=== PATIENT | female | born 1960 | race African-American/Black ===

== ENCOUNTER 2024-01-29 10:59 | Emergency (ER) | payer BC, SELFPAY ==
--- NOTE | ~2024-01-29 | XR_ITS ---
EXAMINATION: XR chest 2V DATE: 01/29/2024 12:05 INDICATION: Shortness of breath and midline chest pain TECHNIQUE: PA and lateral views of the chest were obtained. COMPARISON: Chest radiograph dated 11/29/2011 FINDINGS: The lungs remain clear with no focal airspace opacities, pulmonary edema, pleural effusion or pneumot horax. The cardiomediastinal silhouette is normal. Mild thoracic spondylosis with chronic compression fractures at multiple levels in the mid and lower thoracic spine. Additional unchanged chronic lower sternal fracture. IMPRESSION: 1. No acute cardiopulmonary disease. Reviewed, dictated and finalized at location B.
--- NOTE | 2024-01-29 11:06 | ECG_ITS ---
Test Date: 2024-01-29 11:15:36 Measurements Intervals [place] Rate: 89 P: 19 AL: 167 QRS: -50 QRSD: 93 T: 11 QT: 341 QTc: 415 Interpretive Statements SINUS RHYTHM LEFT AXIS DEVIATION [QRS AXIS < -30] MINIMAL VOLTAGE CRITERIA FOR LVH, CONSIDER NORMAL VARIANT [MEETS CRITERIA IN ONE OF: R(aVL), S(V1), R(V5), R(V5/V6)+S(V1)] No previous ECG available for comparison Electronically Signed On 01-29-2024 13:38:05 CDT by Kristen Neumann M.D.
[2024-01-29 11:11] VITALS: BP 151/75; PULSE 92; RESP 22; TEMP 36.3; O2SAT 97
[2024-01-29 11:27] LABS: Basophils Percent Auto 0.2 % (0.2-1.2); Eosinophils Percent Auto 0.2 % (0-4.4); Hematocrit 41.7 % (37.0-47.0); Hemoglobin 13.8 g/dL (12.0-15.0); Immature Granulocyte Absolute 0.03 K/mm3 (0.00-0.031); Immature Granulocyte Percent A 0.5 % (0-0.5); Lymphocytes Absolute Auto 1.43 K/mm3 (0.9-3.2); Lymphocytes Percent Auto 23.6 % (18.3-44.2); Mean Corpuscular HGB Conc 33.1 g/dl (32-36); Mean Corpuscular Hemoglobin 26.8 pg (26-34); Mean Corpuscular Volume 81.1 fl (80-100); Mean Platelet Volume 8.7 fl (7.4-10.4); Monocytes Absolute Auto 0.3 K/mm3 (0.1-0.6); Neutrophils Absolute Auto 4.3 K/mm3 (1.3-6.7); Neutrophils Percent Auto 70.5 % (45.5-73.1); Platelet Count Result 327 k/mm3 (150-375); Red Blood Count 5.14 M/mm3 (4.2-5.4); Red Cell Distribution Width 13.2 % (11.5-14.5); White Blood Count 6.1 K/mm3 (4.5-10.0)
[2024-01-29 11:36] LABS: Alanine Aminotransferase 14 U/L (6-35); Alkaline Phosphatase 84 U/L (38-126); Anion Gap 11 mmol/L (4-12); Aspartate Amino Transferase 21 U/L (14-36); Bilirubin,Total 0.7 mg/dL (0.2-1.3); Blood Urea Nitrogen 6 mg/dL (7-17); Calcium 9.7 mg/dL (8.4-10.2); Carbon Dioxide 21 mmol/L (22-30); Chloride 107 mmol/L (98-107); Estimated CRCL calculation 108 ml/min; Estimated Glomerular Filt Rate > 60; Glucose 137 mg/dL (65-110); Lipase 58 U/L (23-300); Potassium 3.6 mmol/L (3.4-5.0); Sodium 139 mmol/L (137-145)
[2024-01-29 11:37] LABS: Prothrombin Time 13.5 Seconds (11.1-14.7)
[2024-01-29 11:38] LABS: Partial Thromboplastin Time 27.4 Seconds (22.3-36.8)
[2024-01-29 11:47] LABS: Troponin I < 0.012 ng/mL (0.000-0.034)
--- NOTE | 2024-01-29 12:41 | ED.CHESTPAIN ---
HPI - Chest Pain General Chief Complaint: Chest Pain Stated Complaint: chest pain Time Seen by Provider: 01/29/24 12:24 History of Present Illness HPI narrative: Patient is a 63-year-old female who presents to the emergency department this afternoon complaining of chest pain which started at 2:00 a.m. this morning. Patient states that she was working on a paper on the chest pain started. Patient admits that she does feel nauseated and thought that maybe the pain was due to in the chest and just some Pepto-Bismol with minimal relief. Patient also states she felt lightheaded and is unsure if she is dehydrated. She denies any history of cardiovascular disease. Denies any fevers or chills at home. No additional symptoms or concerns at this time. Related Data Home Medications Medication Instructions Recorded Confirmed losartan 50 mg tablet 50 mg PO DAILY 12/01/19 Allergies Allergy/AdvReac Type Severity Reaction Status Date / Time No Known Allergies Allergy Mild Verified 01/29/24 11:10 Review of Systems Review of Systems: All systems are reviewed and are negative unless stated otherwise in the HPI. [facility] Family History Family History Father Hypertension Cerebrovascular accident Diabetes mellitus Mother Hypertension Family history of malignant neoplasm of breast in first degree relative Family history of seizure disorder Sibling Diabetes mellitus Social History Social History Smoking status: Former smoker Smoking end date: 08/04/08 Alcohol intake: never Exam Narrative: General: Alert, awake, afebrile, in no acute distress. HEENT: PERRL, no rhinorrhea, no post nasal drip, oropharynx clear. Cardiovascular: Regular rate and rhythm, no murmurs, rubs or gallops, no peripheral edema. Respiratory: Clear to auscultation bilaterally, no tachypnea, no wheezing, no rhonchi, no rubs, no respiratory distress. Abdomen: Soft, nontender, nondistended, no rebound, no guarding, no peritoneal signs. Musculoskeletal: No joint swelling or deformity, normal muscle tone. Skin: No rashes or petechia, no signs of infection. Neurological: Alert and oriented to person, place, and time. Follows all commands. No focal deficits, speech is clear and fluent. Course Vital Signs Vital signs: Vital Signs Temperature 97.4 F L 01/29/24 11:11 Pulse Rate 92 01/29/24 11:11 Respiratory Rate 22 H 01/29/24 11:11 Blood Pressure 151/75 H 01/29/24 11:11 Pulse Oximetry 97 01/29/24 11:11 Oxygen Delivery Room Air 01/29/24 11:11 Temperature 97.4 F L 01/29/24 11:11 Pulse Rate 92 01/29/24 11:11 Respiratory Rate 22 H 01/29/24 11:11 Blood Pressure 151/75 H 01/29/24 11:11 Pulse Oximetry 97 01/29/24 11:11 Oxygen Delivery Room Air 01/29/24 12:31 MDM - Chest Pain MDM Narrative Medical decision making narrative: The patient was evaluated by myself in the emergency department. History is obtained from patient who is an independent historian and physical exam was performed. External medical records were reviewed at this time. IV was established and pertinent tests were ordered. Patient was administered 40 mg of IV Protonix, 4 mg of IV Zofran and 1 L IV fluid bolus with normal saline. EKG was obtained which revealed sinus rhythm at a rate of 89 beats per minute. No ST changes, T wave inversions or evidence of acute ischemia. EKG was independently interpreted by me and is currently pending official cardiology read. Laboratory results obtained revealing no acute process. Imaging studies obtained included CXR which was independently interpreted by me revealing no acute process, which is pending final radiology interpretation. Differential diagnosis considerations include acute viral syndrome, infectious process such as pneumonia and acute coronary syndrome although unlikely given pa
[2024-01-29] MEDS: SODIUM CHLORIDE 0.9% IV 1,000 ML 999 ML IV CONT (13:35)
[2024-01-29] MEDS: ONDANSETRON INJ 4 MG/2 ML VIAL IV PUSH (13:36)
[2024-01-29] MEDS: PANTOPRAZOLE SODIUM IV 40 MG VIAL IV PUSH (13:36)
== END 2024-01-29 14:48 | disposition home or self-care (01) ==
PROVIDERS: Emergency Medicine; Emergency Provider Emergency Medicine
DX: R07.89 Other chest pain (principal); Z87.891 Personal history of nicotine dependence
CPT/HCPCS: 36415; 71046; 80053; 83690; 84484; 85025; 85610; 85730; 93005; 96361; 96374; 96375; 99284; C9113; J2405; J7030

== ENCOUNTER 2024-09-24 10:37 | Outpatient (CLI) | payer BC, SELFPAY ==
--- NOTE | ~2024-09-24 | CT_ITS ---
CT Scan of the Chest without Contrast: Clinical Indication: Lung cancer screening, nicotine dependence Technique: Contiguous sections were acquired throughout the chest without intravenous contrast. Dose reduction technique was used on this scan by utilizing automated exposure control and iterative recon struction technique. The dose-length product (DLP) was 117.46 mGy-cm. Findings: There is no evidence of any significant mediastinal, hilar or axillary lymphadenopathy. The mediastin al soft tissues appear normal. There is no evidence of pleural or pericardial effusion. 5 mm pleural-based nodule noted right middle lobe (axial image 54). There is linear right basilar sca rring or atelectasis. Images through the upper abdomen reveal no abnormalities. There are numerous spinal compression fract ures, including at T4, T5, T6, T7, T8, T9, T10, T11, and T12. Impression: Lung RADS 2: Benign appearance. 12 month follow-up screening CT advised. Numerous spinal compression deformities. Correlate for multiple osteoporotic fractures versus any pos sibility of myeloma. Reviewed, dictated and finalized at [facility]. ENGINEER Impression: Lung RADS 2: Benign appearance. 12 month follow-up screening CT advised. Numerous spinal compression deformities. Correlate for multiple osteoporotic fr actures versus any possibility of myeloma.
--- OUTSIDE RECORDS SUMMARY | 2024-09-24 11:14 | XMS_ITS | Clinical Summary ---
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 Gender Identity Not on file Sexual Orientation Not on file Plan of Treatment Health Maintenance Due Date Last Done Comments Hepatitis C Virus (HCV) Screening 1960 TdaP Immunization 1962 Pap Smear 1983 Cervical Cancer Screening (CCS) 02/09/1992 HPV/Cotest 02/09/1992 Colonoscopy 2007 Colorectal Cancer Screening 2007 Cologuard 02/09/2012 Immunochemical Fecal Occult Blood 02/09/2012 Mammogram 02/09/2012 Pneumococcal Immunization (5 0+ years) (1 of 1 - PCV) 02/09/2012 Zoster Immunization (1 of 2) 02/09/2012 Influenza Immunization (#1) 04/04/202412/2016, 05/16/2016 SARS-COV-2 Immunization (2023- season) 2024 Respiratory Syncytial Virus (RSV) Immunization (Adult) (1 - 1-dose 75+ series) 2037 DTaP/Tdap/Td Immunization Discontinued 04/12/2009 Hepatitis B Immunization Aged Out No longer eligible based on patient's age to complete this topic Meningococcal Immunization (ACWY) Aged Out No longer eligible based on patient's age to complete this topic Pneumococcal Immunization Combined Aged Out No longer eligible based on patient's age to complete this topic Rotavirus Immunization Aged Out No lo nger eligible based on patient's age to complete this topic
--- OUTSIDE RECORDS SUMMARY | 2024-09-24 11:14 | XMS_ITS | Data Portability ---
Author Organization [place] [facility], Main Office Address [address] [place] [address] Assessment No assessment recorded. Plan of Treatment Reminders Order Date Submit Date Provider Last Modified By Organization Details Last Modified Time Details Appointments None recorded. Lab glycohemog lobin, total, blood 2024 025 [email or web address] [facility] (Lab), [address] [place], [address], 5 17:00:51 CMP, serum or plasma 2024 025 [email or web address] [facility] (Lab), [address] [place], [address], 5 17:00:51 vitamin D, 25-hydroxy , total, serum 2024 025 [email or web address] [facility] (Lab), [address] [place], [address], 5 17:00:51 TSH, serum or plasma 2024 025 [email or web address] [facility] (Lab), [address] [place], [address], 5 17:00:51 CBC w/ auto diff 2024 025 [facility] (Lab), [address] [place], [address], 5 17:00:51 lipid panel, serum 2024 025 [email or web address] [facility] (Lab), [address] [place], [address], 5 17:00:51 glycohemog lobin, total, blood 2023 024 [email or web address] [facility] (Lab), [address] [place], [address], 4 15:02:56 Referral None recorded. Procedures None recorded. Surgeries None recorded. Imaging home sleep study - Please call patient to arrange. 2024 025 [facility] ([facility] Call Scheduling), [address] [place], [address], 5 18:35:24 LDCT, chest, for lung cancer screening - *Please call pt to schedule* 2023 024 [facility] (One Call Scheduling), [address] [place], [address], 4 09:29:49 Medication Orders zolpidem 5 mg tablet 2024 025 [facility], [address] [place], [place], [id number], 5 16:57:55 trazodone 50 mg tablet 2023 024 [facility]42, [address] [place], [place], [id number], 4 14:44:25 amlodipine 5 mg tablet 2023 024 [facility], [address] [place], [place], [id number], 4 14:44:13 losartan 100 mg tablet 2023 024 [facility] #67411, [address] [place], [place], [id number], 4 14:44:16 zolpidem 5 mg tablet 2023 024 [facility] #34756, [address], [place], [id number], 4 11:02:21 Rybelsus 3 mg tablet 2023 024 [facility] #85706, [address] [place], [place], [id number], 5 16:34:38 Metamucil Sugar-Free (aspartame ) 3.4 gram/5.8 gram oral powder 2023 024 [facility] #84831, [address] [place], [place], [id number], 5 16:33:45 amlodipine 5 mg tablet 2023 024 [facility] #32620, [address], [place], [id number], 4 11:02:23 Patient TargetsNo targets recorded. Patient InstructionsNo instructions recorded. Reason for Referral None Reported. Results Created Date Observation Date Name Description Value Unit Range Abnormal Flag Note LastModifiedBy Organization Detail LastModifiedTime 07/23/20 23 07/22/2023 D[facility]A [facility] [address] [place] [address] [phone] Patien t Name: RANI RONVINCENT Veronica Access ion #: [id number] Sex: F : 1959 7 Dictat ed By: Amari Khalil Attend ing Physic miko: HUGH UREÑA [facility] Physic miko: HUGH UREÑA Exam Date: 2022 14:51 PM Exam Name: XR DEXA-H IPS PELVIS SPINE Admitt ing Diagno sis(es ): INDICA TION: Postme nopaus al osteop orosis DEXA SCAN: BONE DENSIT Y REPORT : AP SPINE (L1-L4 ) : T Score: -1.3 Left Radius TOTAL : T Score: -1.2 10 YEAR FRACTU RE RISK* NA IMPRES BETTIE: 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 Fractu re probab ility calcul ated for an untrea miguel patien t. Fractu re probab ility may be lower if the patien t has receiv ed treatm ent. T-scor e: compar cayetano by standveronica rd deviat ion (SD) to a young adult popula tion, matche d for sex and ethnic ity (used for postme nopaus al women and men >50 years) and classi fied by WHO criter ia. ?-1.0: normal <-1.0 to >-2.5: osteop enia ?-2.5: osteop orosis ?-2.5 plus fragil ity fractu re: severe osteop orosis Z-scor e: compar ed by SD to an age, sex, and ethnic ity popula tion (used for premen opausa l women, men <50 years, and childr en instea d of T-scor e WHO Page 1 [facility] [address] [place] [address] Patien t Name: ANAY DALIA BLANCO Access ion #: [id number] Sex: F : 1959 7 Dictat ed By: Amari Khalil Attend ing Physic miko: HEENA MIR Physic miko: HUGH UREÑA Exam Date: 2022 14:51 PM Exam Name: XR DEXA-H IPS PELVIS SPINE Admitt ing Diagno sis(es ): criter ia 4) <-2.0: below expect ed range/ low bone densit y for age, and a cause should be sought Electr onical ly Signed by: Amari Khalil at 2022 06:54: 04 AM Page 2 [email or web address] [facility] (One Call Scheduling) [address] [place], [address], 08/01/2023 11:21:59 07/23/20 23 07/22/2023 scree marisa breas t jaimie, bilat [facility] [address] [place] [address] [phone] Patien t Name: DALIA RON Access ion #: [id number] Sex: F : 1959 7 Locati on: RAD Attend ing Physic miko: HUGH UREÑA Physic miko: HUGH UREÑA Exam Date: 2022 2:51 PM Exam Name: MG SCRTushar BREAST JAIMIE BILAT Admitt ing Diagno sis(es ): MAMMOG VANDANA REPORT - FINAL EXAM: MG SCRN BREAST JAIMIE BILAT HISTOR Y: SCREEN ING MAMMOG ADELINA 63-yea r-old female with no curren t breast compla ints. COMPAR CAYETANO: 2012 TECHNI QUE: Bilate ral CC and MLO views of the breast s were perfor med. Digita l Mammog vandana images were obtain ed. CAD (compu ter assist ed detect ion) was utiliz ed. 3D Digita l breast tomosy nthesi s was perfor med and used in the interp retati on of images . FINDIN GS: There are scatte red areas of fibrog landul ar densit y. No masses , asymme tries, suspic ious calcif icatio ns, or cuba ectura l Page 1 of 2 [facility] Mauro lim Name: DALIA RON Access ion #: [id number] Sex: F : 1959 7 Exam Date: 2022 2:51 PM Exam Name: MG SCRN BREAST JAIMIE BILAT Admitt ing Diagno sis(es ): distor tion are seen. IMPRES BETTIE: BIRADS 1: Assess ment comple te. Negati ve. Recomm end annual screen ing mammog vandana. Accord ing to the [employer], yearly mammog raffi are recomm ended starti ng at age 40 and contin uing as long as the woman is in good health . Clinic al Breast Exam should be part of the period ic health exam-a bout every 3 years for women in their 20s and 30s and every year for women 40 and over. Breast self-e xam is an option for women in their 20s. Any breast change noted on the breast self-e xam she would be report ed prompt ly to the [facility]. A negati ve mammog vandana report should not discou rage follow -up or biopsy of a clinic ally signif icant findin g and/or abnorm ality. Dense breast tissue may obscur e small neopla sms. This mauro lim has been entere d into a mammog vandana remind er system with a target date for her next mammog adelina. Create d and electr onical ly signed by: Lyle wynn MD Signed Date: 2022 11:26 AM (CT) Dictat ed by: Lyle wynn MD DD: 2022 11:26 AM (CT) DT: 2022 11:26 AM (CT) Page [address] (Imaging) [address] [place], [address], 12/12/2023 17:43:37 03/13/20 24 03/12/2024 LDCT, chest , for lung cance r tomas cunningham No observ ation record ed. [email or web address] [facility] [address] [place], [address], 03/26/2024 17:24:28 03/13/20 24 03/12/2024 LDCT, chest , for lung cance r otmas cunningham No observ ation record ed. [email or web address] [facility] (One Call Scheduling) [address] [place], [address], 03/26/2024 10:06:37 05/03/20 24 05/03/2024 MAMMO , tomas olearyg, digit al, bilat eral No observ ation record ed. [facility] [address] [place], [address], 05/06/2024 09:34:34 Result Notes None recorded. 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 Active sober for years Not Available [facility] 3 13:18:00 Abdominal pain 19528839 Completed Not Available [facility] 3 13:18:00 Radial styloid tenosynov itis 76563365 Active Not Available [facility] 3 13:18:00 Gastroeso phageal reflux disease 681447418 Active Not Available [facility] 3 13:18:00 Vitamin D deficienc y 61043232 Active Not Available [facility] 3 13:18:00 Malignant tumor of cervix 910830789 Active Not Available [facility] 3 13:18:00 Sinusitis 31272987 Active Not Available [facility] 3 13:18:00 Dizziness 203423824 Completed Not Available [facility] 3 13:18:00 Obesity 230133007 Active Not Available [facility] 3 13:18:00 Essential hypertens ion 90166805 Active Not Available [facility] 3 13:18:00 Prediabet es 238372230 Active 2019 Not Available [facility] 3 13:18:00 Pain in limb 24530686 Active Not Available [facility] 3 13:18:00 Insomnia 312297504 Active 2022 Lisette Horner MD [address], [place], [address] , [employer] [facility] 3 07:41:03 Type 2 diabetes mellitus 45678641 Active 2022 Lisette Horner MD [address], [address], [place], [address] , [employer] [facility] 3 08:01:20 Osteopeni a 692964126 Active 2022 DEXA 3 Lisette Horner MD [address], [address], [place], [address] , [employer] [facility] 3 07:59:31 Pain of right knee joint 29118087518 4100 Active 2023 Nirmal Edouard [employer] MANAGER[employer]C [address], [place], [address] , [employer] [facility] 4 10:26:22 Pain in right hip joint 45010244889 9102 Active 2023 Nirmal Edouard, TOWN MANAGER-C [address], [address], [place], [address] , [employer] [facility] 4 10:29:33 Altered bowel function 45015499 Active 2023 Nirmal Edouard, TOWN MANAGER-C [address], [address], [place], [address] , [employer] [facility] 4 10:57:51 Nodule of lung 921044384 Active 2023 Nirmal Edouard TOWN MANAGER[employer]C [address], [place], [address] , [employer] [facility] 4 14:27:20 Problem Notes None recorded. Procedures Surgical History Date Name Laterality Status Provider Name and Address Organization Details Recorded Time 02/24/20 colonoscopy completed Not Available [facility] 10/03/19 13:16:59 total replacement of hip completed Not Available [facility] 10/02/2022 13:16:59 Foot Surgery completed Not Available [facility] 10/02/2022 13:16:59 Partial hysterectomy completed Not Available [facility] 10/02/2022 13:16:59 release of trigger thumb completed Not Available [facility] 10/02/2022 13:16:59 Imaging Results Imaging Date Name Status LastModified by Organiz ation Details LastModified Time 07/22/2023 DEXA completed [email or web address] [facility] (One Call Scheduling) [address] [place], [address], 08/01/2023 11:21:59 07/22/2023 screening breast ajimie, bilat completed [email or web address] [facility] (Imaging) [address] [place], [address], 12/12/2023 17:43:37 03/12/2024 LDCT, chest, for lung cancer screening completed [email or web address] [facility] [address] [place], [address], 03/26/2024 17:24:28 03/12/2024 LDCT, chest, for lung cancer screening completed [email or web address] [facility] (One Call Scheduling) [address] [place], [address], 03/26/2024 10:06:37 05/03/2024 MAMMO, screening, digital, bilateral completed [facility] [address] [place], [address], 05/06/2024 09:34:34 Procedure Notes None recorded. Medical Equipment None Reported. Allergies No known drug allergies Medications Name Sig Start Date Stop Date Status Note LastModified by Organization Details LastModified Time losartan 50 mg tablet TAKE 1 TABLET BY MOUTH EVERY DAY IN THE MORNING 11/06 completed Not Available Not Available Not Available amoxicillin 500 mg capsule TK 1 C PO TID FOR 7 DAYS 06/14 completed Not Available Not Available Not Available hydrocodone 7.5 mg-ibuprofe n 200 mg tablet 09/03 completed Not Available Not Available Not Available trazodone 50 mg tablet TAKE 1 TABLET BY MOUTH DAILY active Not Available Not Available No t Available azithromyci n 250 mg tablet TAKE 2 TABLETS BY MOUTH TODAY, THEN TAKE 1 TABLET DAILY FOR 4 DAYS 02/19 completed Not Available Not Available Not Available ibuprofen 800 mg tablet 03/04 completed Not Available Not Available Not Available fluconazole 150 mg tablet TAKE 1 TABLET BY MOUTH FOR 1 DOSE 09/16 completed Not Available Not Available Not Available hydroquinon e 4 % topical cream ALEENA AA QD IN THE OSMAN 06/14 completed Not Available Not Available Not Available amlodipine 5 mg tablet TAKE 1 TABLET BY MOUTH EVERY DAY active Not Available Not Available No t Available omeprazole 40 mg capsule,del ayed release TAKE 1 CAPSULE BY MOUTH DAILY 2023 active Not Available Not Available Not Avai lable tramadol 50 mg tablet TAKE 1 OR 2 TABLETS BY MOUTH EVERY 8 HOURS NEEDED FOR PAIN. DECREASE TO 1 TABLET BY MOUTH DAILY SOON POSSIBLE 09/16 completed Not Available Not Available Not Available amoxicillin 500 mg tablet Take 1 tablet 3 times a day by oral route for 7 days. 08/29 completed Not Available Not Available Not Available pantoprazol e 20 mg tablet,cammy yed release 09/04 completed Not Available Not Available Not Available nystatin-tr iamcinolone 100,000 unit/gram-0 .1 % topical ointment APPLY TOPICALLY TO THE AFFECTED AREA TWICE DAILY FOR 5 DAYS 09/16 completed Not Available Not Available Not Available hydromorpho ne 2 mg tablet TAKE 1 TO 2 TABLETS BY MOUTH EVERY 8 HOURS NEEDED FOR PAIN. DECREASE TO 1 TABLET DAILY SOON POSSIBLE 09/16 completed Not Available Not Available Not Available oxycodone-a cetaminophe n 10 mg-325 mg tablet 03/04 completed Not Available Not Available Not Available dicyclomine 20 mg tablet TAKE 1 TABLET BY MOUTH EVERY 6 HOURS NEEDED FOR ABDOMINAL PAIN 09/16 completed Not Available Not Available Not Available hydrocodone 7.5 mg-acetamin ophen 325 mg tablet 09/03 completed Not Available Not Available Not Available cephalexin 500 mg capsule 09/03 completed Not Available Not Available Not Available pantoprazol e 40 mg tablet,cammy yed release TAKE 1 TABLET BY MOUTH EVERY DAY active Not Available Not Available No t Available lisinopril 10 mg tablet Take 1 tablet every day by oral route for 30 days. active Not Available Not Available No t Available lansoprazol e 30 mg capsule,del ayed release 1 po qday 09/16 completed Not Available Not Available Not Available losartan 25 mg tablet TAKE 2 TABLETS BY MOUTH EVERY DAY active Not Available Not Available No t Available ibuprofen 400 mg tablet 08/29 completed Not Available Not Available Not Available zolpidem 5 mg tablet TAKE 1 TABLET BY MOUTH EVERY NIGHT AT BEDTIME NEEDED 2024 active Not Available Not Available Not Avai lable metoprolol succinate ER 25 mg tablet,exte nded release 24 hr TAKE 1 TABLET BY MOUTH DAILY 09/16 completed Not Available Not Available Not Available ergocalcife rol (vitamin D2) 1,250 mcg (50,000 unit) capsule TAKE 1 CAPSULE BY MOUTH EVERY WEEK 03/04 completed Not Available Not Available Not Available ondansetron 4 mg disintegrat ing tablet DISSOLVE 1 TABLET ON THE TONGUE EVERY 8 HOURS NEEDED FOR NAUSEA OR VOMITING 09/16 completed Not Available Not Available Not Available losartan 100 mg tablet TAKE 1 TABLET BY MOUTH EVERY DAY active Not Available Not Available No t Available fluticasone propionate 50 mcg/actuati on nasal spray,suspe nsion [place] 1 spray every day by intranasa l route. active Not Available Not Available No t Available metformin ER 500 mg tablet,exte nded release 24 hr TAKE 1 TABLET BY MOUTH TWICE DAILY WITH FOOD 09/16 completed Not Available Not Available Not Available cyclobenzap rine 5 mg tablet TAKE 1 TO 2 TABLETS BY MOUTH EVERY 8 HOURS NEEDED FOR BACK PAIN 09/16 completed Not Available Not Available Not Available Golytely 236 gram-22.74 gram-6.74 gram-5.86 gram oral solution 1X 8 OZ GLASS EVERY 20 MIN 09/16 completed Not Available Not Available Not Available Metamucil Sugar-Free (aspartame) 3.4 gram/5.8 gram oral powder 2-5 caps PO qd 09/16 completed Not Available Not Available Not Available Rybelsus 7 mg tablet Take 1 tablet every day by oral route. 2024 active Not Available Not Available Not Avai jair Rybelsus 3 mg tablet TAKE 1 TABLET BY MOUTH EVERY DAY 09/16 completed Not Available Not Available Not Available Vitals Date Recorded Body weight Body mass index (BMI) Body height Body temperature Oxygen saturation Oxygen saturation in Arterial blood by Pulse oximetry Heart rate Systolic blood pressure Diastolic blood pressure Provider Name and Address Organization Details Last Updated DateTime 4 39361.8 4 g 32.9 kg/m2 167.64 cm 96.3 [degF] 98 % 98 % 69 /min 160 mm[Hg] 92 mm[Hg] Roseline Fowler RN [facility] [employer] [facility] 4 10:21:38 Date Recorded Body height Provider Name an d Address Organization Details Last Updated DateTime 08/21/2023 167.64 cm Ranjith Gleason RN [facility] [employer] [facility] 08/21/2023 16:11:27 Date Recorded Body height Body mass index (BMI) Body weight Body temperature Heart rate Oxygen saturation Oxygen saturation in Arterial blood by Pulse oximetry Systolic blood pressure Diastolic blood pressure Provider Name and Address Organization Details Last Updated DateTime 4 167.64 cm 30.8 kg/m2 88671.1 4 g 98 [degF] 80 /min 98 % 98 % 120 mm[Hg] 70 mm[Hg] Lynette Perez RN [facility] [employer] [facility] 4 14:12:33 Date Recorded Body height Body mass index (BMI) Body weight Body temperature Heart rate Oxygen saturation Oxygen saturation in Arterial blood by Pulse oximetry Systolic blood pressure Diastolic blood pressure Provider Name and Address Organization Details Last Updated DateTime 5 167.64 cm 31.2 kg/m2 68518.3 3 g 98.4 [degF] 70 /min 98 % 98 % 126 mm[Hg] 68 mm[Hg] Meg Ledesma RN [facility] [employer] [facility] 5 16:32:19 Social History Question Answer Notes LastModified by Organizat ion Details LastModified Time Tobacco Smoking Status Former Smoker Meg Ledesma RN [facility], [place] - [facility] 09/16/2024 16:37:01 Do You Have An Advance Directive? Yes Information not available 09/16/2024 What Is Your Level Of Alcohol Consumption? None Information not available 09/16/2024 What Is Your Level Of Caffeine Consumption? None Information not available 09/16/2024 In The 14 Days Before Symptom Onset, Have You Had Close Contact With A Laboratory-confi rmed COVID-19 While That Case Was Ill? No Information not available 09/16/2024 In The 14 Days Before Symptom Onset, Have You Had Close Contact With A Person Who Is Under Investigation For COVID-19 While That Person Was Ill? No Information not available 09/16/2024 What Type Of Diet Are You Following? 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 No Information not available 09/16/2024 When Did You Quit Smoking? 11-15yearssincelast cigarette Information not available 09/16/2024 Are There Any Guns Present In Your Home? No Information not available 09/16/2024 Do You Use Insect Repellent Routinely? No Information not available 09/16/2024 Where Do You Live? SingleLevelHouse Information not available 09/16/2024 Do You Have A Medical Power Of Saturator Operator? Yes Information not available 09/16/2024 What Was The Date Of Your Most Recent Tobacco Screening? 04/28/2023 [email or web address] Information not available 04/28/2023 Do You Have Any Pets? No Information not available 09/16/2024 What Is Your Relationship Status? Single Information not available 09/16/2024 Do You Use Your Seat Belt Or Car Seat Routinely? Yes Information not available 09/16/2024 Do You Have Smoke And Carbon Monoxide Detectors In Your Home? Yes Information not available 09/16/2024 At What Age Did You Start Smoking Tobacco? 15 Information not available 09/16/2024 Are You Passively Exposed To Smoke? No Information not available 09/16/2024 Are There Any Smokers In Your House? No Information not available 09/16/2024 Do You Participate In Social Media? Yes Information not available 09/16/2024 Do You Feel Stressed (tense, Restless, Nervous, Or Anxious, Or Unable To Sleep At Night)? [id number] Information not available 09/16/2024 Do You Use Sunscreen Routinely? No Information not available 09/16/2024 How Many Years Have You Smoked Tobacco? 30 Information not available 09/16/2024 Have You Recently Traveled Abroad? No [id number] Information not available 10/02/2022 Sex: Unknown Functional Status None recorded. Mental Status None recorded. Family History Relationship Description Onset Age of this Age Resolved Age Notes LastModified by Organization Details LastModified Time Father Diabetes mellitus [id number] Not available 10/02/2022 13:16:59 Father Essential hypertension [id number] [id number] Not available 10/02/2022 13:16:59 Father Malignant tumor of breast [id number].299 [id number] Not available 10/02/2022 13:16:59 Sister Diabetes mellitus [id number] [id number] Not available 10/02/2022 13:16:59 Mother Essential hypertension MIGRATION.719 [id number] Not available 10/02/2022 13:16:59 Medical History No medical history recorded. Gynecological HistoryNo gynecological history recorded. Obstetrics History GPAL:G 0 P 0 0 0 0 Immunizations Vaccine Type Date Status Note Provider Nam e and Address Organization Details Recorded Time Influenza, split virus, quadrivalent, PF 04/28/2023 completed Ranjith Gleason RN [facility] [place] [employer] [facility] 04/28/2023 12:43:25 Td (adult) 04/12/2009 completed Not Available [facility] 10/02/2022 13:20:31 Influenza, split virus, quadrivalent, PF 06/14/2021 completed Not Available [facility] 13:20:31 Influenza, split virus, quadrivalent, PF 04/19/2022 completed Not Available [facility] 13:20:31 Past Encounters Encounter ID Performer Location Encounter Start Date Encounter Closed Date Diagnosis/Indication Diagnosis SNOMED-CT Code Diagnosis ICD10 Code Diagnosis Note [id number] [facility] Primary Care [facility] [address] [facility] [address] [place] [address] 06/14/2021 00:00:00 06/26/2021 09:47:59 [id number] [facility] Primary Care [facility] [address] [facility] [address] [place] [address] 11/06/2021 00:00:00 11/06/2021 09:54:23 [id number] _ATHENA_M IGRATION_ DEFAULT_1 _1 , 12/12/2021 00:00:00 12/12/2021 15:29:[id number] [place] [address] 04/17/2022 00:00:00 04/24/2022 14:01:24 [id number] Lisette Horner MD [address] [facility] [place] [address] 04/28/2023 12:06:52 04/28/2023 12:42:28 Administration of influenza vaccine 67103982 Z23 Adult heal th examination 155399706 Z00.00 colonoscop y done 05/2022 normalmamm ogram order givendexa order givens/p hysterecto my, no pap needednons nydiaker since 2008, [facility] labsflu vaccine today Essential hypertension 21897150 I10 Vitamin D deficiency 347 27245 E55.9 Prediabetes 760340211 R7 3.03 Screening mammography 24 951764 Z12.31 Postmenopausal state 764 01193 Z78.0 History of total replacement of left hip joint 2061790513 329291 Z96.642 [facility], will [facility] clearance pending results [id number] MER Wall [facility] Primary Care [facility] [address] [facility] [address] [place], [place] [address] 08/13/2023 10:13:35 08/13/2023 13:52:02 Pain in right hip joint [id number] 98394 M25.551 -pain can get up to 3/10 at its worst-uses tramadol occ-pt scheduled to have a revision of Right hip on 09/01/23-Dr Palacio will be doing the surgery at [facility]-EKG and blood work has already been completed through surgeons office-boris taty clearance to be given after bp is WNL Essential hypertension 42075132 I10 -bp 160/92, 69-she takes losartan 100mg daily, has not been taking the recommende d amlodipine and metoprolol -will re-add amlodipine 5mg-will f/u next week for bp reading and possible sign-off on surgery clearance Type 2 ojhn betes mellitus 18515914 E11.9 -currently taking metformin BID-contin ues to check her blood sugars daily-she would like to try rybelsus-f /u in 1 month Insomnia 231885022 G47.0 0 -chronic, stable-ref ill given Altered loretta wel function 51756716 R19.4 -will trial metamucil [id number] MER Wall [facility] [address] [place] [address] 08/21/2023 15:37:09 08/21/2023 17:33:56 [id number] MER Molina [facility] Primary Care [address] [place] [address] 02/18/2024 12:20:11 02/18/2024 14:37:51 [id number] MER Wall [facility] Primary Care [address] [place] [address] 02/24/2024 14:01:04 02/24/2024 15:29:37 Type 2 diabetes mellitus 27430841 E11.9 does not check blood sugars at homecurren tly on rybelsus 7mg, did have to go to hospital d/twould like increase in rybelsus if a1c elevated -currently taking metformin BID-contin ues to check her blood sugars daily-she would like to try rybelsus-f /u in 1 month Ex-cigarette smoker 8151 28334 Z87.891 quit 10 years agosmoked 1/2-1ppd for 25 years Insomnia 063238233 G47.0 0 -uses ambien daily along with unisom-wou ld like to try something that is not controlled -trial trazodone Essential hypertension 38202829 I10 [id number] MER Molina [facility] [address] [facility] [address] [facility] [place] [address] 09/16/2024 16:19:09 09/16/2024 17:04:37 Adult health examination 912960422 Z00.00 Discussed medication compliance and routine follow up.Discuss ed healthy diet and routine exercise.R shariiewed vaccine records and made recommenda tions as needed.Enc ouraged annual eye and dental exams, as well as twice yearly dental cleanings. Will check screening labs as listed below. Insomnia 840881652 G47.0 0 Essential hypertension 21925366 I10 126/68.Julio l discontinu e Amlodipine and monitor BP for 2 weeks and contact office with readings. Body mass index 30+ - obesity 683152759 Z68.31 Gastroesop hageal reflux disease 515127714 K21.9 Type 2 john betes mellitus 85980247 E11.9 Vitamin D deficiency 347 73349 E55.9 Thyroid di sorder screening 868750630 Z13.29 Health Concerns Section Related Observation LastModified by Organization Detai ls LastModified Time None Recorded Concern Status LastModified by Organization Details LastModified Time None Recorded Advance Directives Directive Y: Payers Encounter Date Sequence Insurance Name Policy Number Policy Cantu Covered Member ID Cantu Member ID Guarantor Name 08/13/2023 1 [place] [id number] Dewanda A Crochrell [id number] Dewanda A Crochrell 08/21/2023 1 [place] [id number] Dewanda A Crochrell [id number] 15 Dewanda A Crochrell 02/18/2024 1 [place] [id number] Dewanda A Crochrell [id number] 15 Dewanda A Crochrell 02/24/2024 1 [place] [id number] Dewanda A Crochrell [id number] 15 Dewanda Veronica Salmeronchrell 09/16/2024 1 [facility]: (PPO) [id number] Dedanielndveronica A Ygrell [id number] 15 Mariia Ware Notes Date Note Type Note Provider Name and Address Organization Details Recorded Time 08/13/2023 text/html Pt is here for surgery clearance MER Wall [address], [place], [address], [employer] 08/13/2023 11:05:47 02/24/2024 text/html pt is here for f/u MER Palm [address], [place], [address], [employer] 02/24/2024 15:20:44 09/16/2024 text/html Patient is a 64 year old female that presents to the office for annual wellness. Patient reports she is doing well overall, would like to discontinue her Metformin due her A1c being at goal and having issues with gas. Patient is aware that medication may need to be restarted. Patient has been trying to wean off of Zolpidem, she is able to fall asleep on her own most nights but it takes awhile , patient is unable to stay asleep for more than a few hours. Would like to see if sleep study is approved by insurance as she does not like taking the medication. labs-orderedWWE- (06/2024)Mammogram - (04/2024)Colonosco py- UTDFlu- UTDCovid- UTDTdap- awareShingles- declinesPneumonia- aware MER Molina [address], [place], [address], [employer] 09/16/2024 17:02:31 OBGyn Episode No OBEpisode recorded.
--- OUTSIDE RECORDS SUMMARY | 2024-09-24 11:14 | XMS_ITS | Clinical Summary ---
Author Organization [facility] Address [address] [place] [address] Care Team Providers Care Belting And Webbing Inspector Name Role Phone Nirmal Edouard NP Primary Care Provider [phone] Allergies No known active allergies Medications fluticasone propionate (FLONASE) 50 mcg/actuation nasal spray Administer 2 sprays into each nostril daily 1 Inhaler 11 0 Active Active Problems No known active problems Family History Medical History Relation Name Comments Breast cancer Mother Merced Ware Breast cancer Sister Relation Name Status Comments Mother Merced Ware Alive Sister Social History Tobacco Use Types Packs/Day Years Used Date Smoking Tobacco: Never Assessed Comments No Sex and Gender Information Value Date Recorded Sex Assigned at Not on file 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 Gender Identity Not on file Sexual Orientation Not on file Obstetrics History Para Term AB IAB SAB Ectopic Multiple Livin g Live Births 0 0 0 0 0 0 0 0 0 0 0 Plan of Treatment Health Maintenance Due Date Last Done Comments Cervical Cancer Screening 1962 Colon Cancer Screening-Colonoscopy 1962 Depression Screening 1962 Hepatitis C Screening 1962 Hepatitis B Screening 02/09/1980 Regular Well Visit/Exam 18-64 02/09/1980 DTaP/Tdap/Td Vaccine (1 - Tdap) 04/13/2009 04/12/2009 Zoster Vaccine (1 of 2) 02/09/2012 Influenza Vaccine (#1) 2024 3, 04/19/2022, 06/14/2021, Additional history exists Breast Cancer Screening-Mammogram 05/03/2025 05/03/2024, 05/24/2022, 04/05/2021, Additional history exists Pneumococcal vaccine <65 Aged Out No longer eligible based on patient's age to complete this topic Procedures Procedure Name Priority Date/Time Associated Diagnosis Comments SCREENING MAMMOGRAM BILATERAL W ROMAN Schedule Routine, Read Routine (OP Routine) 05/03/2024 11:32 AM CDT Screening mammogram, encounter for from Last 3 Months or Most Recently Relevant to Health Maintenance Results * Screening Mammogram Bilateral W Roman (05/03/2024 11:32 AM CDT) Anatomical Region Laterality Modality Breast Bilateral Mammography Impressions 05/03/2024 12:05 PM CDT BI-RADS ATLAS category (overall): 2 - Benign There is no mammographic evidence of malignancy. A 1 year screening mammogram is recommended. The patient has been or will be contacted. We recommend annual screening mammography for women at average risk of breast cancer beginning at age 40, based on guidelines of the [place] [employer] (ACR Practice Parameter for the Performance of Screening and Diagnostic Mammography) and [place] [employer]. For women with and elevated risk of breast cancer, please refer to the ACR Practice Parameter for specific screening recommendations. The patient will be entered into a reminder system with a target due date of 1 year for her next screening exam. Narrative 05/03/2024 12:05 PM CDT Screening Mammogram Bilateral W Roman: 05/03/24 The study was acquired using full field digital technology and interpreted from soft copy. 2D digital mammographic views, as well as 3D digital tomosynthesis were performed in the CC and MLO projections. CLINICAL: Screening mammogram, encounter for No relevant medical history has been documented for this patient. History of breast cancer in Mother, Sister. COMPARISONS: 05/24/2022 Screening Mammogram Bilateral W Roman 04/05/2021 Screening Mammogram Bilateral W Roman 12/23/2019 Screening Mammogram 2D Bilateral 03/18/2019 Breast Imaging Screening Outside Reference BREAST TISSUE: There are scattered areas of fibroglandular density. FINDINGS: There are benign appearing microcalcifications in both breasts, not suspiciously changed. There is no new suspicious finding in either breast on mammogram. Nirmal Edouard NATURAL SCIENCES PROFESSOR IMG MAMMO PROCEDURES Final Re sult from Last 3 Months or Most Recently Relevant to Health Maintenance Insurance CHOICE PRF PPO [facility] Care Teams Belting And Webbing Inspector Relationship Specialty Start Date End Date Nirmal Edouard NP [address] [place] [address] [place] [address] PCP - General Family Medicine 04/22/24
--- OUTSIDE RECORDS SUMMARY | 2024-09-24 11:14 | XMS_ITS | Data Portability ---
Author Organization [facility] Address [address] [place] [address] Assessment Encounter Date Assessment Date Assessment LastModified by Organization Details LastModified Time 02/18/2024 02/18/2024 Annual gynecological exam performed. Patient will come back in a year unless there are new symptoms. [email or web address] Not available 02/18/2024 12:21:51 Plan of Treatment Reminders Order Date Submit Date Provider Last Modified By Organization Details Last Modified Time Details Appointments None recorded. Lab None recorded. Referral None recorded. Procedures None recorded. Surgeries None recorded. Imaging MAMMO, screening, digital, bilateral 2023 [facility], [address] [facility] [address], [place], [address], 5 05:01:40 Medication Orders fluconazole 150 mg tablet 2023 024 [facility] [place] [id number], [address] [place], [place], [id number], 4 12:22:23 nystatin-tr iamcinolone 100,000 unit/gram-0 .1 % topical ointment 2023 024 [facility] [place] [address][id number], [address], [place], [id number], 4 12:22:29 Patient TargetsNo targets recorded. Patient InstructionsNo instructions recorded. Reason for Referral None Reported. Procedures Surgical History Date Name Laterality Status Provider Name and Address Organization Details Recorded Time 08/04/19 23 replacement of bilateral hip joints completed [facility] 01/08/2024 14:13:57 08/04/19 05 Partial Hysterectomy completed [facility] 01/08/2024 14:13:38 Imaging Results None recorded. Procedure Notes None recorded. Medical Equipment None Reported. Allergies Allergen ID Allergen Name Allergen Category Reaction Reaction Severity Criticality Documentation Date Start Date Code Code System Note Provider Name and Address Organization Details Recorded Time 01983 naproxen medicatio n hives Not available low 01/08/2024 7258 [facility] 14:11:15 Medications Name Sig Start Date Stop Date Status Note LastModified by Organization Details LastModified Time fluconazole 150 mg tablet TAKE 1 TABLET BY MOUTH FOR 1 DOSE 02/17 completed Not Available Not Available Not Available amlodipine 5 mg tablet TAKE 1 TABLET BY MOUTH EVERY DAY active Not Available Not Available No t Available omeprazole 40 mg capsule,del ayed release TAKE 1 CAPSULE BY MOUTH DAILY active Not Available Not Available No t Available tramadol 50 mg tablet TAKE 1 OR 2 TABLETS BY MOUTH EVERY 8 HOURS NEEDED FOR PAIN. DECREASE TO 1 TABLET BY MOUTH DAILY SOON POSSIBLE 01/07 completed Not Available Not Available Not Available nystatin-tr iamcinolone 100,000 unit/gram-0 .1 % topical ointment APPLY TOPICALLY TO THE AFFECTED AREA TWICE DAILY FOR 5 DAYS 02/17 completed Not Available Not Available Not Available hydromorpho ne 2 mg tablet TAKE 1 TO 2 TABLETS BY MOUTH EVERY 8 HOURS NEEDED FOR PAIN. DECREASE TO 1 TABLET DAILY SOON POSSIBLE active Not Available Not Available No t Available dicyclomine 20 mg tablet TAKE 1 TABLET BY MOUTH EVERY 6 HOURS NEEDED FOR ABDOMINAL PAIN active Not Available Not Available No t Available zolpidem 5 mg tablet TAKE 1 TABLET BY MOUTH EVERY NIGHT AT BEDTIME NEEDED active Not Available Not Available No t Available metoprolol succinate ER 25 mg tablet,exte nded release 24 hr TAKE 1 TABLET BY MOUTH DAILY 01/07 completed Not Available Not Available Not Available ondansetron 4 mg disintegrat ing tablet DISSOLVE 1 TABLET ON THE TONGUE EVERY 8 HOURS NEEDED FOR NAUSEA OR VOMITING active Not Available Not Available No t Available losartan 100 mg tablet TAKE 1 TABLET BY MOUTH EVERY DAY active Not Available Not Available No t Available metformin ER 500 mg tablet,exte nded release 24 hr TAKE 1 TABLET BY MOUTH TWICE DAILY WITH FOOD active Not Available Not Available No t Available cyclobenzap rine 5 mg tablet TAKE 1 TO 2 TABLETS BY MOUTH EVERY 8 HOURS NEEDED FOR BACK PAIN active Not Available Not Available No t Available Rybelsus 7 mg tablet TAKE 1 TABLET BY MOUTH EVERY DAY active Not Available Not Available No t Available Rybelsus 3 mg tablet TAKE 1 TABLET BY MOUTH EVERY DAY 01/07 completed Not Available Not Available Not Available Vitals Date Recorded Body height Body mass index (BMI) Body weight Systolic blood pressure Diastolic blood pressure Provider Name and Address Organization Details Last Updated DateTime 01/08/2024 167.64 cm 30.8 kg/m2 94884.14 g 135 mm[Hg] 76 mm[Hg] Sue [facility] 4 14:09:42 Date Recorded Body height Body mass index (BMI) Body weight Systolic blood pressure Diastolic blood pressure Provider Name and Address Organization Details Last Updated DateTime 02/18/2024 167.64 cm 30.8 kg/m2 47285.14 g 133 mm[Hg] 86 mm[Hg] Sue [facility] 4 13:58:19 Social History Question Answer Notes LastModified by Organizat ion Details LastModified Time Tobacco Smoking Status Never Smoker Sue [facility] 01/08/2024 14:17:29 In The 14 Days Before Symptom Onset, Have You Had Close Contact With A Laboratory-confirm ed COVID-19 While That Case Was Ill? No [email or web address] Information n ot available 01/08/2024 In The 14 Days Before Symptom Onset, Have You Had Close Contact With A Person Who Is Under Investigation For COVID-19 While That Person Was Ill? No [email or web address] Information not available 01/08/2024 Have You Been To An Area Known To Be High Risk For COVID-19? No [email or web address] Information not available 01/08/2024 Sex: Unknown Functional Status None recorded. Mental Status None recorded. Family History Relationship Description Onset Age of this Age Resolved Age Notes LastModified by Organization Details LastModified Time Mother Malignant tumor of breast [email or web address] Not available 2023 14:15:40 Mother Hypertensive disorder [email or web address] Not available 2023 14:15:49 Mother Malignant tumor of lung [email or web address] Not available 2023 14:16:00 Mother Seizure disorder [email or web address] Not available 2023 13:52:52 Father Diabetes mellitus [email or web address] Not available 2023 14:16:20 Father Hypertensive disorder [email or web address] Not available 2023 14:16:31 Sister Diabetes mellitus [email or web address] Not available 2023 14:16:44 Paternal Aunt Diabetes mellitus [email or web address] Not available 2023 14:16:52 Brother Hypertensive disorder [email or web address] Not available 2023 14:17:03 Medical History Condition Response Diabetes Y Cancer Y Hypertension Y Gynecological History Statement/Question Response Abnormal Pap Yes Date of Last Mammogram On BCP's at Conception? N STIs/STDs N HPV Vaccine N Colposcopy Current Control Method Hysterectom y Date of Last Colonoscopy Sexually Active? N Date of DEXA bone scan Age of first menstrual cycle 11 Date of Last Pap Smear Sexual Problems? N Obstetrics History GPAL:G 0 P 0 0 0 0 Past Encounters Encounter ID Performer Location Encounter Start Date Encounter Closed Date Diagnosis/Indication Diagnosis SNOMED-CT Code Diagnosis ICD10 Code Diagnosis Note [id number] [facility] [place] [address] [address] 01/08/2024 13:24:55 01/08/2024 14:58:53 Vaginitis 36469945 N76.0 detailed health hx obtained and reviewed todayvagin itis panel sentdeclin ed STI screenrx sent for yeast, r/b/a reviewedvu lvar care guidelines discussed (d/c use of scented soaps/prod ucts)encou raged to schedule WWE Time spent in visit is a total of 25 mins with at least 50% of visit consisting of counseling and review of plan of care. Vulval irritation 863580 003 N90.89 [id number] WILLOW Dunne [place] [address] [address] 02/18/2024 13:51:38 02/18/2024 15:50:51 Gynecologic examination 48050092 Z01.419 WWEvaginal pap updateddec lined STI screeningm ammogram order givengenet ic testing discussedd exa UTDcolonos copy UTDroutine labs UTD Do monthly self breast exams. It is advised to get annual flu shot in the fall and she could obtain at local pharmacy. If you haven't received the Tdap vaccine in the last 10 years you should obtain one as well. Have mammogram yearly, bone density every 2-3 years and stay up to date on colon cancer screening. Engage in regular exercise. Avoid tobacco and illicit drugs. This lifestyle behavior pattern will lead to less health conditions and longer life span. If BMI greater than 25 dietary consult advised. Questions have been answered. Patient appears to understand instructio ns, but if you have any further questions call or respond to this email Screening for malignant neoplasm of breast 391673051 Z12.39 Health Concerns Section Related Observation LastModified by Organization Detai ls LastModified Time None Recorded Concern Status LastModified by Organization Details LastModified Time None Recorded Advance Directives Directive None Recorded Payers Encounter Date Sequence Insurance Name Policy Number Policy Cantu Covered Member ID Cantu Member ID Guarantor Name 01/08/2024 1 [place] [id number] Dewanda Crochrell [id number] 15 Dewanda Faviolachrell 02/18/2024 1 [place] [id number] Dewanda Crochrell [id number] 15 Dewanda Crochrell Notes Date Note Type Note Provider Name and Address Organization Details Recorded Time 01/08/2024 text/html 63yo Z3hesbojkj for vulvar itchingsymptoms present x 2 weeksnoticed after using new soapneg d/c, odorsnot SA h/o hysterectomy, ovaries remain. Done in 2004 for cervical cancer per ptpaps after hyst normal [facility] [address], [place], [address], [facility] 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 Post-MenopausalRepor miguel bypatient.Menopausal Symptoms:no menopausal symptoms; normal vaginal lubrication Vaginal Bleeding:history of menopause having occurred; no history of post menopausal bleeding Urinary Symptoms:no hematuria; no incontinence; no nocturia; no urinary frequency Vulva:no genital lesion; no vulvar atrophy Vagina:normal vaginal discharge; no vaginal atrophy Breast:no breast lump; no nipple discharge; no breast pain Sexual Complaints:no sexual complaints Psychological Symptoms:no depression; no anxietyNotes:64yo WWEh/o hysterectomy, ovaries remain (2004 for cervical cancer). Normal vaginal paps sincemammogram last olonoscopy last exa last 2022UTD with PCP for routine labs [facility]OW [facility] [address], [place], [address], [facility] 02/18/2024 15:49:28 OBGyn Episode No OBEpisode recorded.
--- OUTSIDE RECORDS SUMMARY | 2024-09-24 11:15 | XMS_ITS | Clinical Summary ---
Author Organization [facility] Address [address] [place] [address] Care Team Providers Care Giver Name Role Phone Unavailable Primary Care Provider Unavailabl e Source Comments [facility],non-owned Affiliates and Associated Physician Practices is amultiple site organization consisting of ambulatory clinics and hospital sitesin [place], [place], [place] and [place]. This disclosure is being madepursuant to the Care Everywhere program and may not contain all information available regarding this patient. Last updated 18.[facility] Allergies No known active allergies Medications * Be aware that medications may not be up to date on this document. Alwaysverify current medications with the patient. Medication Sig Dispensed Refills Start Date End Date Status varenicline (CHANTIX STARTING ) 0.5 MG X 11 & 1 MG X 42 tabletsIndications: Senile osteoporosis Take by mouth. Take 0.5 mg daily days 1-3, twice daily days 4-7, then 1 mg twice daily 1 pack 0 03/09/2009 Active varenicline (CHANTIX CONTINUING ) 1 MG tabletIndications:S enile osteoporosis Take 1 Tab by mouth 2 times daily. 30 03/09/2009 Active teriparatide (recombinant) (FORTEO) 750 MCG/3ML injectionIndication s:Senile osteoporosis Inject 0.08 mL subcutaneously daily. 3 1 03/09/2009 Active Social History Tobacco Use Types Packs/Day Years Used Date Smoking Tobacco: Every Day Cigarettes 0.8 30 Alcohol Use Standard Drinks/Week Comments No 0 (1 standard drink = 0.6 oz pur e alcohol) Sex and Gender Information Value Date Recorded Sex Assigned at Not on file Gender Identity Not on file Sexual Orientation Not on file Last Filed Vital Signs Vital Sign Reading Time Taken Comments Blood Pressure 112/80 03/09/2009 10:25 AM CDT Pulse - - Temperature - - Respiratory Rate - - Oxygen Saturation - - Inhaled Oxygen Concentration - - Weight 80.7 kg (178 lb) 03/09/2009 10:25 AM CDT Height - - Body Mass Index - - Plan of Treatment Health Maintenance Due Date Last Done Comments COLOGUARD (AGES 45-75) - COL ON CA SCREENING 1962 COLON MONITORING 1962 COLONOSCOPY - COLON CA SCREENING 1962 CT COLONOGRAPHY - COLON CA SCREENING 1962 Colorectal Cancer Screening 1962 FIT - COLON CA SCREENING 1962 FLEX SIG - COLON CA SCREENING 1962 LIPID TESTING 1962 MAMMOGRAM 1962 PAP SMEAR 1962 HIV SCREENING 1977 HEPATITIS C SCREENING 02/04/1980 DTAP/TDAP/TD VACCINES (1 - Tdap) 1981 PNEUMOCOCCAL VACCINE 50+ (1 of 2 - PCV) 1981 PNEUMOCOCCAL VACCINE (1 of 2 - PCV) 1981 ZOSTER VACCINE (1 of 2) 02/09/2012 COVID-19 VACCINE ( - 2023-2 5 season) 2024 INFLUENZA VACCINE (#1) 2024 DEPRESSION SCREENING 08/04/2024 Respiratory Syncytial Virus (RSV) Vaccine Pt: or over 60 yrs (1 - 1-dose 75+ series) 2037 HEPATITIS B VACCINE Aged Out No longe r eligible based on patient's age to complete this topic HIB VACCINE Aged Out No longer eligi ble based on patient's age to complete this topic HPV VACCINE Aged Out No longer eligi ble based on patient's age to complete this topic MENINGOCOCCAL (Group B) VACCINE Aged Out No longer eligible based on patient's age to complete this topic MENINGOCOCCAL VACCINE Aged Out No moriah shauna eligible based on patient's age to complete this topic
--- OUTSIDE RECORDS SUMMARY | 2024-09-24 11:15 | XMS_ITS | Clinical Summary ---
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 Gender Identity Not on file Sexual Orientation Not on file Plan of Treatment Health Maintenance Due Date Last Done Comments Cervical Cancer Screening Pa p Smear (Age 30 to 64) Every 3 Years 1962 Colorectal Cancer Screening Colonoscopy (10 Years) 1962 Annual Physical 1965 Hepatitis C 02/09/1980 DTaP, Tdap and Td Vaccines ( 1 - Tdap) 1981 Cervical Cancer Screening Pa p with HPV Testing (Age 30 to 64) Every 5 Years 02/09/1992 Cervical Cancer Screening with HPV 02/09/1992 Mammogram Screening 2002 Zoster Vaccines (1 of 2) 02/09/2012 COVID-19 Vaccine (2023-2 5 season) 2024 Influenza Adult (#1) 2024 RSV Immunization or 60+ Years (1 - 1-dose 75+ series) 2037 Meningococcal B Vaccine Aged Out No l onger eligible based on patient's age to complete this topic Meningococcal Vaccine Aged Out No moriah shauna eligible based on patient's age to complete this topic Pneumococcal Vaccine: Pediat rics (0 to 5 Years) and At-Risk Patients (6 to 64 Years) Aged Out No longer eligible b ased on patient's age to complete this topic RSV Immunizations Under 20 Months Aged Out No longer eligible based on patient's age to complete this topic
--- OUTSIDE RECORDS SUMMARY | 2024-09-24 11:15 | XMS_ITS | Referral Summary ---
Author Organization [facility] Address [facility] [place] [address] Care Team Providers Care Jv Baseball Coach Name Role Phone Nirmal Edouard NP Primary Care Provider [phone] Allergies No known active allergies Medications fluticasone propionate (FLONASE) 50 mcg/actuation nasal spray Administer 2 sprays into each nostril daily 1 Inhaler 11 0 Active Active Problems No known active problems Social History Tobacco Use Types Packs/Day Years Used Date Smoking Tobacco: Never Assessed Comments No Sex and Gender Information Value Date Recorded Sex Assigned at Not on file 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 For women [...] in either breast on mammogram. Nirmal Edouard NP IMG MAMMO PROCEDURES Final Re sult from Last 3 Months or Most Recently Relevant to Health Maintenance Insurance [facility] [place] [facility] Care Teams Jv Baseball Coach Relationship Specialty Start Date End Date Nirmal Edouard NP [address] [id number] PCP - General Family Medicine 04/22/24
--- OUTSIDE RECORDS SUMMARY | 2024-09-24 11:15 | XMS_ITS | Patient Health Summary ---
Author Organization [facility] Address [address] [facility] [place] [address] Care Team Providers Care Pilot Boat Captain Name Role Phone Unavailable Primary Care Provider Unavailabl e Note from [facility],non-owned Affiliates and Associated Physician Practices is amultiple site organization consisting of ambulatory clinics and hospital sitesin [place], [place], [place] and [place]. This disclosure is being madepursuant to the Care Everywhere program and may not contain all information available regarding this patient. Last updated 18.[facility] [employer] Allergies No known active allergies Medications * Be aware that medications may not be up to date on this document. Alwaysverify current medications with the patient. * varenicline (CHANTIX STARTING ) 0.5 MG X 11 & 1 MG X 42 tablets (Started 03/09/2009) Take by mouth. Take 0.5 mg daily days 1-3, twice daily days 4-7, then 1 mg twice daily * varenicline (CHANTIX CONTINUING ) 1 MG tablet(Started 03/09/2009) Take 1 Tab by mouth 2 times daily. 1 refill left * teriparatide (recombinant) (FORTEO) 750 MCG/3ML injection(Started 03/09/2009) Inject 0.08 mL subcutaneously daily. 1 refill left Social History Tobacco Use Types Packs/Day Years [...] - - Body Mass Index - - Procedures * LAB RESULTS ORDER(Performed 01/28/2009) * IMAGING/RADIOLOGY/XRAY RESULTS ORDER(Performed 12/14/2008) * CYTOLOGY NON-[facility] REP PANEL(Performed 03/26/2004) * FROZEN SECTION(Performed 03/26/2004) Results * LAB RESULTS ORDER (01/28/2009) Dwight Dempsey MD LAB - THERAPEUTIC DR DEISY MONITORING ORDERABLES * IMAGING/RADIOLOGY/XRAY RESULTS ORDER (12/14/2008) Anatomical Region Laterality Modality Other Dwight Dempsey MD IMAGING * CYTOLOGY NON-[facility] REP PANEL (03/26/2004 3:00 PM CDT) Result CASE NUMBER [id number] Comment: ORDERING PHYSICIAN LAQUITA SZYMANSKI SPECIMEN TYPE Pelvic Washings Date 03/26/2004 Physician Szymanski Specimen Adequacy Satisfactory for evaluation. Cell Pathology Benign mesothelial cells seen. *Diagnosis Negetive for malignancy. Snomed. 03/27/2004 1416 <1> Pathologist Sarai Upton M.D. CPT code 17477 MISCELLANEOUS SAMPLES / Unknown 03/26/2004 3:00 PM CDT 03/27/2004 7:18 AM CDT Historical Provider LAB - PATHOLOGY/C YTOLOGY ORDERABLES * FROZEN SECTION (03/26/2004 12:52 PM CDT) Result CASE NUMBER [id number] Comment: ORDERING PHYSICIAN LAQUITA SZYMANSKI SPECIMEN TYPE Lymph Node-rt external iliac Date 03/26/2004 Physician Szymanski Gross Description Received fresh, labeled 'lymph node right external iliac node' and consists of a fragment of fibroadipose tissue measuring 8 x 5 x .5 cm. there are three possible lymph nodes present ranging in size from .3 x .3 x .3 cm. to 1 x .8 x .3 cm. each lymph node is bisected and entirely submitted in FSA. Umer/jason 2-received fresh, labeled 'right obturator lymph node' and consists of a fragment of fibroadipose tissue that measures 3 x3 x 1 cm. sales representative raw fibers sections submitted in FSB, one lymph node bisected with three small lymph nodes. FSC-one bisected lymph node, FSD- two bisected lymph nodes, one small lymph node. 3-specimen is identified as 'right periaortic lymph node' and consists of a fragment of fibroadipose tissue measuring .3 x 1 x .3 cm. There is a single lymph node that is entirely submitted in FSE. 4-specimen is identified as 'left external iliac lymph node' and consists of a fragment of fibroadipose tissue measuring 3 x2 x 1 cm. sales representative raw fibers sections are submitted in FSF-one lymph node bisected, FSG-one bisected lymph node with thre small lymph nodes. 5-specimen is identified as 'left obturator lymph node' and consists of a fragment of fibroadipose tissue measuring 2 x 1 x .8 cm. sales representative raw fibers sections are submitted in FSH single bisected lymph node, FSI-two bisected lymph nodes. 6-specimen is identified as 'left fiorella-aortic lymph node' and consists of a fragment of fibroadipose tissue measuring .5 x .5 x .3 cm. sales representative raw fibers sections are submitted in FSJ, single bisected lymph node. Umer/jason The next container is identified as left parametral tissue and consists of an elongated fragment of variegated in color tissue measuring 3.5 x 0.5 x 0.5 cm. It is serially sectioned and entirely submitted in cassettes K and L. The next container is identified as right parametrial tissue and consists of an irregularly shaped fragment of purplish tissue measuring 2.5 x 1.5 x 0.3 cm. The specimen is serially sectioned and entirely submitted in cassette M. The next container is identified as pelvic washings and consists of approximately 30 cc. of dark pinkish, non translucent fluid. The specimen is submitted for cell block preparation in cassette CBN. The next container is identified as uterus, cervix and consists of a uterus measuring 7.5 x 11 x 6 cm. in greatest dimension with attached cervix with a fragment of surrounding vaginal tissue that measures 4 x 5.5 x 5 cm. and weighs 370 grams. The external lining of the uterus is tannish, light brownish, smooth and glistening. The cervix has dark brownish exophytic lesion that is located between 3-4 o'clock and 0.8 cm away from the vaginal resecton margin at 3 oclock. It is involved entirely the cervical os that grossly appears dilated and measures 1.5 cm in diameter. The lesion of the cervix which appears brownish grossly involves the whole thickness of the cervical wall in two quadrants between 12-3, 3-6 o'clock and small portion of lesion located between 6-7 o'clock involving the whole thickness of the cervix. The overall measurement of the lesion is 2 x 3 x 2.5 cm in greatest dimension. The lesion spreads into the adjacent tissue and appears at the radial resection margin. The lesion involves the lower portion of the cervical canal, the upper portion of the cervical canal is free of lesion. The radial resection margin along the cervix is inked black. Shave section taken along the vaginal resection margin is submitted as follows cassette O, shave sections taken from 12-3, cassette P,3- 6,cassette Q, 6-9 cassette R, 9-12 o'clock. The uterus is opened to reveal a slit like appearing oval shaped uterine cavity measuring 4 x 1 cm. in greatest dimension. It has smooth internal lining. The thickness of the myometrium is up to 2.3 cm. There is a single whitish fibrotic nodule measuring 7 x 6.5 x 6 cm. in greatest dimension. Harvest Contractor sections are submitted as follows cassettes S and T, single section taken across 3 o'clock cassette U, single cross section taken at 2 o'clock cassettes V and W, single cross section taken at 6 o'clock of cervix cassettes X and Y, single cross section taken at 7 o'clock cassette Z, random section taken at 10 o'clock cassette AA, endomyometrium, anterior cassette BB, endomyometrium, posterior cassette CC and DD, fibroid nodules. TK/bk Microscopic Exam Section labeled FSA reveals three lymph nodes negative for metastatic malignancy. Section labeled FSB, FSB, FSC and FSD reveals eight lymph nodes negative for metastatic malignancy. Sections labeled FSE reveals one node negative for metastatic malignancy. Section labeled FSF and FSG reveals five lymph nodes negative for metastatic malignancy. Section labeled FSH and FHI reveals three lymph nodes negative for metastatic malignancy. Section labeled FSJ reveals one node negative for metastatic malignancy. Sections labeled K and L reveal fibrocollagenous adipose tissue fragments intermixed with vascular bundles. Malignancy is not seen. Focal area of fibrosis with dystrophic calcification is identified. Section labeled M reveals fibrocollagenous, adipose and vascular tissue. No malignancy is seen. One lymph node is identified which is negative for metastatic malignancy. Section labeled N reveals pelvic washings cell block blood intermixed with mesothelial cells. Atypical or malignant cells are not seen. Sections O and P are from the vaginal resection margin at 12-6 o'clock and reveal squamous epithelial lined fragments. Normal maturation is noted. Malignancy is not seen. One cell reveals an organizing thrombus in underlying stroma. Sections Q and R are from 6-12 o'clock position and reveal squamous epithelial lined fragments without any evidence of malignancy. Sections labeled S through Y are from the cervical tumor and reveal a poorly differentiated nonkeratinizing squamous cell carcinoma which is deeply invasive. Transition from normal squamous epithelium to malignancy is identified. Tumor is seen as solid sheets and nests with identifiable intercellular bridges. The nuclei show hyperchromasia with eosinophilic cytoplasm. Nuclear variation in size and shape is seen. Mitotic activity is easily seen. Tumor necrosis is identified. Lymphatic/vascular channel permeation is present. Tumor invades deeply into the underlying stroma 1.5 cm. thickness out of 1.8 cm. of the cervical thickness. The deep inked margin is free of tumor involvement. Section Z is the uninvolved portion of the cervix and reveals squamocolumnar lined tissue fragments with chronic inflammation. Malignancy is not seen. Sections of the endomyometrium reveal a proliferative phase endometrium. Malignancy is not seen. Sections of the myometrium reveal adenomyosis. Section of the leiomyoma reveals elongated interlacing bundles of smooth muscle cells. Areas of hyalinization are seen. No evidence of any nuclear atypia, increased mitosis, necrosis, or malignancy is seen. SR/bk Diagnosis FROZEN SECTION DIAGNOSIS I. Right external iliac node, frozen section Diagnosis FSA - 3 lymph nodes negative. II. Right obturator nodes, frozen section Diagnosis -- FSB, FSC, FSD - 8 lymph nodes negative. III. Right periaortic lymph nodes, frozen section Diagnosis -- FSE - 1 node negative. IV. Left external iliac lymph nodes, frozen section Diagnosis -- FSF, FSG - 5 lymph nodes, negative. V. Left obturator lymph nodes, frozen section Diagnosis -- FSH, FSI - 3 nodes, negative. . Left periaortic lymph nodes, frozen section Diagnosis -- FSJ - 1 node negative. (SR). FINAL DIAGNOSIS I. Right external iliac lymph nodes, Frozen section -- 3 lymph nodes negative for metastatic malignancy (0/3) II. Right obturator lymph nodes, Frozen section -- 8 lymph nodes negative for metastatic malignancy (0/8). III. Right periaortic lymph node, Frozen section -- One lymph node negative for metastatic malignancy, (0/1). IV. Left external iliac lymph node, Frozen section -- Five lymph nodes, negative for metastatic malignancy (0/5). V. Left obturator lymph node, frozen Section -- Three lymph nodes negative for metastatic malignancy (0/3) . Left periaortic lymph node, frozen Section -- One lymph node negative for metastatic malignancy (0/1). VII. Left parametrial tissue -- No evidence of malignancy. VIII.Right parametrial tissue -- No evidence of malignancy. XIV. Pelvic washings, cell block -- Negative for malignancy. XV. Uterus cervix -- Squamous cell carcinoma, poorly differentiated nonkeratinizing, tumor size 3 x 2.5 x 1.5 cm. -- Tumor invades 1.5 cm. out of 1.8 cm. thickness of cervix. -- TNM and FIGO classification - TMN, T1b,N0,MX, FIGO stage IB. -- Lymphatic/vascular channel permeation present. -- Deep margin of excision free. -- Vaginal resection margin free of tumor involvement. XVI. Uterus, endometrium -- Proliferative phase endometrium. -- No evidence of tumor involvement. XVII.Uterus, myometrium -- Adenomyosis. -- Leiomyoma. -- No evidence of malignancy. /cassidy Tax Attorney bk Pathologist Sarai Upton M.D. Snomed. 03/28/2004 1319 <7> CPT code [id number] MISCELLANEOUS SAMPLES / Unknown 03/26/2004 12:52 PM CDT 03/26/2004 12:52 PM CDT Historical Provider LAB - PATHOLOGY/C YTOLOGY ORDERABLES
--- OUTSIDE RECORDS SUMMARY | 2024-09-24 11:15 | XMS_ITS | Referral Summary ---
Author Organization [facility] Address [address] [facility] [place] [address] Care Team Providers Care Research Epidemiologist Name Role Phone Unavailable Primary Care Provider Unavailabl e Source Comments [facility],non-owned Affiliates and Associated Physician Practices is amultiple site organization consisting of ambulatory clinics and hospital sitesin [place], [place], [place]. This disclosure is being madepursuant to the Care Everywhere program and may not contain all information available regarding this patient. Last updated 18.[facility] Allergies No known active allergies Medications * [...] Mass Index - - Plan of Treatment Not on file
--- OUTSIDE RECORDS SUMMARY | 2024-09-24 11:15 | XMS_ITS ---
Author Organization [facility] Address [address] [facility] [address] [place], [place] [id number] Care Team Providers Care Building Principal Name Role Phone IVANNA AYALA [phone] REASON FOR VISIT *ankle pain Encounters Encounter Location Date Provider Diagnosis [facility] [address] [facility] [address] [place], [place] [id number] 03/26/2023 IVANNA AYALA Plan Of Treatment No Information Progress Notes * Willis ESPINOSAaDOB:1959 (64 yo F)Acc No.[id number]:03/26/2023 Progress Notes Patient: Seayetta Provider: Gregory Ayala DPM :1960 A ge:63 Y S ex:Female Date:03/26/2023 Address:[address] [place], [place] [id number] Subjective: * Chief Complaints: * 1 . *ankle pain. * Medical History: Objective: * Vitals: Assessment: Plan: * Treatment: * Billing Information: * Visit Code: * Procedure Codes: * Electronic signature of DEEPTI KHALIL DPM on 09/24/2024 at 11:15 AM ROOFING SUPERINTENDENT Sign off status: Pending * Provider: Gregory Ayala DPM Date: 03/26/2023 Generated for Rolf dorman/Antionette/Gibsonitting on: 0 09/24/2024 11:15 AM ROOFING SUPERINTENDENT
--- OUTSIDE RECORDS SUMMARY | 2024-09-24 11:15 | XMS_ITS | Patient Health Record ---
Author Organization [facility] Address [address] [facility] [address] [place], [place] [id number] Reason For Referral No Information Plan Of Treatment No Information
== END 2024-09-24 10:38 | disposition home or self-care (01) ==
PROVIDERS: PCP Nurse Practitioner Family; Visit Provider Physician Assistant
DX: Z12.2 Encounter for screening for malignant neoplasm of respiratory organs (principal); Z87.891 Personal history of nicotine dependence; R91.1 Solitary pulmonary nodule
CPT/HCPCS: 71271